=== PATIENT | female | born 1955 ===

== ENCOUNTER 2024-03-13 06:46 | Day surgery (SDC) | payer OTHER ==
[2024-03-12 11:10] LABS: URINE APPEARANCE Cloudy; URINE BILIRRUBIN Negative (NEGATIVE); URINE BLOOD Small; URINE COLOR Yellow; URINE GLUCOSE Negative (NEGATIVE); URINE KETONE Negative (NEGATIVE); URINE LEUKOCYTE Large; URINE NITRATE Positive; URINE PROTEIN Negative (NEGATIVE); URINE UROBILINOGEN 0.2 E.U./dl
[2024-03-12 11:14] LABS: URINE EPITHELIAL CELLS 7.7 uL (0.0-38.8); URINE RBC 73.9 uL (0.0-20.8)
[2024-03-12 11:32] LABS: HEMATOCRIT 40.6 % (36.0-45.00); HEMOGLOBIN 13.9 g/dL (12.0-15.00); MEAN CELL VOLUME 91.9 fL (80.00-100.00); MEAN CORPUSCULAR HEMOGLOBIN 31.4 pg (27.00-32.0); MEAN CORPUSCULAR HGB CONC 34.2 g/dl (32.0-36.0); PLATELET COUNT 325 K/uL (150-450); RED BLOOD COUNT 4.42 M/uL (4.00-6.00); RED CELL DISTRIBUTION WIDTH 13.6 % (11.5-14.5)
[2024-03-12 11:39] LABS: URINE BACTERIA > 9821.5 uL (0.0-1933)
[2024-03-12 12:03] LABS: ALBUMIN 3.7 gm/dL (3.4-5.0); BILIRUBIN TOTAL 0.57 mg/dL (0.3-1.2); CALCIUM 9.8 mg/dL (8.5-10.1); CREATININE SERUM 0.56 mg/dL (0.55-1.02); GFR 106.71; GLOBULINA 4.1 G/DL (2.4-3.5); POTASSIUM 4.48 mEq/L (3.5-5.1); TOTAL PROTEIN 7.8 gm/dL (6.4-8.2)
[2024-03-12 12:37] LABS: INR 0.98; PARTIAL THROMBOPLASTIN TIME 26.4 SECONDS (22.0-34.0); PROTHROMBIN TIME 10.2 SECONDS (9.0-11.5)
[~2024-03-13 06:46] MED LIST: ADULT LOW DOSE81 M1; HYDROCHLOROTHIA25 MG; LOSARTAN POTAS100 MG; METOPROLOL SUC100 MG; SIMVASTATIN
[2024-03-13] MEDS ORDERED: CEFAZOLIN SODIUM 1,000 MG VIAL IV ONE (15:15)
[2024-03-13] MEDS ORDERED: BUPIVACAINE HCL 30 ML VIAL IJ ONE (15:15)
== END 2024-03-13 19:00 | disposition home or self-care (01) ==
LOC: CIR.AMB 06:46
PROVIDERS: ATTEND Orthopaedic Surgery Hand Surgery
DX: S56.117A Strain of flexor muscle, fascia and tendon of right little finger at forearm level, initial encounter (principal); E78.00 Pure hypercholesterolemia, unspecified; I10 Essential (primary) hypertension
CPT/HCPCS: 26390; L8699

== ENCOUNTER → 2025-04-16 | Day surgery (SDC) | payer OTHER ==
[2025-04-09 11:04] VITALS: BP 133/75
[2025-04-09 12:02] LABS: URINE APPEARANCE Cloudy; URINE BILIRRUBIN Negative (NEGATIVE); URINE BLOOD Small; URINE COLOR Dark Yellow; URINE GLUCOSE Negative (NEGATIVE); URINE KETONE Trace (NEGATIVE); URINE LEUKOCYTE Large; URINE NITRATE Negative; URINE PROTEIN Trace (NEGATIVE); URINE UROBILINOGEN 0.2 E.U./dl
[2025-04-09 12:05] LABS: URINE EPITHELIAL CELLS 92.3 uL (0.0-38.8); URINE RBC 90.3 uL (0.0-20.8); URINE WBC 237.3 uL (0.0-23.2)
[2025-04-09 12:26] LABS: URINE CAST 0.29 uL (0.0-1.40)
[2025-04-09 12:28] LABS: BASO % 0.2 % (0.1-1.2); EOS # 0.09 (0.04-0.54); EOS % 0.9 % (0.7-7.0); LYMPH # 2.81 (1.18-3.74); LYMPH % 29.3 % (19.3-53.1); MEAN PLATELET VOLUME 10.50 fl (9.4-12.4); MONO # 0.68 (0.24-0.82); MONO % 7.1 % (4.7-12.5); NEUT # 5.95 (1.56-6.13); NEUT % 62.1 % (34.0-71.1); RED CELL DISTRIBUTION WIDTH 12.5 % (11.6-14.4)
[2025-04-09 12:54] LABS: INR 1.05
[2025-04-09 13:17] LABS: ALT/SGPT 21.0 U/L (12-78); AST/SGOT 15.0 U/L (15-37); BILIRUBIN TOTAL 0.65 mg/dL (0.3-1.2); BUN CREA RATIO 21.0 (7.0-25.0); CREATININE SERUM 0.57 mg/dL (0.55-1.02); GFR 104.26; GLOBULINA 3.7 G/DL (2.4-3.5); GLUCOSE FASTING 103.0 mg/dL (65-100); OSMOLALITY SERUM 285.0 MOSM/KG (275-295)
[~2025-04-16] VITALS: Ht 157.5 cm; Wt 87.1 kg
[~2025-04-16] MED LIST changes: +CEFAZOLIN SODIUM 1,000 MG VIAL ONE; +ELIQUIS5 MG PO
== END | disposition home or self-care (01) ==
LOC: ADM 04-08 08:30 → CIR.AMB 07:45
PROVIDERS: ATTEND Orthopaedic Surgery Hand Surgery
DX: S66.106D Unspecified injury of flexor muscle, fascia and tendon of right little finger at wrist and hand level, subsequent encounter (principal)